=== PATIENT | male | born 1985 | race African-American/Black ===

== ENCOUNTER 2021-06-24 11:19 | Emergency (ER) | payer MEDICAID ==
[~2021-06-24] VITALS: Ht 172.7 cm; Wt 75.0 kg
[2021-06-24] MEDS ORDERED: IBUP-2029 PO (12:49)
[2021-06-24] MEDS ORDERED: AMOX-424 MT (12:49)
[2021-06-24 12:55] VITALS: BP 127/87
== END 2021-06-24 12:57 | disposition home or self-care (01) ==
LOC: ER 11:19
DX: S01.511A Laceration without foreign body of lip, initial encounter (principal); Z79.899 Other long term (current) drug therapy; Y04.0XXA Assault by unarmed brawl or fight, initial encounter; Y93.89 Activity, other specified; Y92.89 Other specified places as the place of occurrence of the external cause; Y99.8 Other external cause status
CPT/HCPCS: 99283

== ENCOUNTER 2021-06-26 11:38 | Emergency (ER) | payer MEDICAID ==
[~2021-06-26] VITALS: Ht 167.6 cm; Wt 73.0 kg
[~2021-06-26 11:38] MED LIST: AMOX-424 MT; IBUP-2029 PO
[2021-06-26 11:42] VITALS: BP 133/85
== END 2021-06-26 13:33 | disposition home or self-care (01) ==
LOC: ER 11:38
DX: Z48.00 Encounter for change or removal of nonsurgical wound dressing (principal)
CPT/HCPCS: 99281